=== PATIENT | female | born 1960 | race Caucasian/White ===

== ENCOUNTER 2016-08-04 04:28 | Emergency (ER) | payer OTHER ==
[~2016-08-04] VITALS: Ht 149.9 cm; Wt 90.7 kg
[2016-08-04 04:45] VITALS: BP 105/69
--- NOTE | 2016-08-04 05:10 | Emergency Room Report ---
History of Present Illness General Chief Complaint: Abdominal Pain Source: Patient Present Illness HPI Is a 56-year-old female with no past medical history. She presents chief complaint of profuse diarrhea. His been ongoing for the last 3 days. She's gone multiple times. No vomiting. No fever or chills but no nausea no vomiting. Cramping pain. Diarrhea is watery and profuse. No blood. No recent travel other than from [place] to here. No camping. No recent antibiotics. Allergies: Coded Allergies: ACETAMINOPHEN (Verified Allergy, Unknown, 08/04/16) HYDROCODONE (Verified Allergy, Unknown, 08/04/16) OXYCODONE (Verified Allergy, Unknown, 08/04/16) PREDNISONE (Verified Allergy, Unknown, 08/04/16) Uncoded Allergies: DARVOCET (Allergy, Mild, 08/04/16) Patient History Past Medical History: see triage record, old chart reviewed Past Surgical History: none Pertinent Family History: none Social History: Denies: drug use Last Menstrual Period: N/a Now: No Immunizations: other Reviewed Nursing Documentation: PMH: Agreed, PSxH: Agreed Nursing Documentation-PMH Past Medical History: No History, Except For Review of Systems Eye: Denies: blurred vision, eye pain ENT: Denies: ear pain, nose congestion, throat swelling Respiratory: Denies: cough, shortness of breath Cardiovascular: Denies: chest pain, palpitations Gastrointestinal: Reports: abdominal pain, diarrhea, Denies: nausea, vomiting Musculoskeletal: Denies: back pain, joint pain Skin: Denies: rash Neurological: Denies: headache, numbness Endocrine: Denies: increased thirst, increased urine Hematologic/Lymphatic: Denies: easy bruising All Other Systems: negative except mentioned in HPI Physical Exam Vital Signs Date Time Temp Pulse Resp B/P Pulse Ox O2 Delivery O2 Flow Rate FiO2 08/04/16 04:40 98.2 100 16 107/68 100 Room Air vitals normal Sp02 EP Interpretation: reviewed, normal General Appearance: well appearing, no apparent distress, alert Head: normocephalic, atraumatic Eyes: bilateral eye EOMI, bilateral eye PERRL ENT: hearing grossly normal, normal pharynx Neck: full range of motion, supple, no meningismus Respiratory: chest non-tender, lungs clear, normal breath sounds Cardiovascular #1: regular rate, rhythm, no murmur Gastrointestinal: normal bowel sounds, non tender, no mass, no organomegaly, no bruit, non-distended Musculoskeletal: back normal, gait/station normal, normal range of motion Psychiatric: mood/affect normal Skin: warm/dry Medical Decision Making Diagnostic Impression: Primary Impression: Abdominal pain Qualified Codes: R10.84 - Generalized abdominal pain Additional Impression: Diarrhea of presumed infectious origin ER Course Patient presents with protracted diarrhea and abdominal cramps. No risk factor bacterial infection. Because of the severity and duration, will go ahead and put her on antibiotics. Repeat exam is benign. I see no evidence of obstruction or acute abdomen. Patient hydrated here. We'll discharge home. Last Vital Signs Date Time Temp Pulse Resp B/P Pulse Ox O2 Delivery O2 Flow Rate FiO2 08/04/16 04:40 98.2 100 16 107/68 100 Room Air Status: improved Disposition: HOME, SELF-CARE Condition: Stable Scripts Metronidazole* (FLAGYL*) 500 Mg Tablet 500 MG ORAL BID, #14 TAB 0 Refills Prov: ROSITA VIGIL M.D. 08/04/16 Ciprofloxacin Hcl* (CIPROFLOXACIN HCL*) 500 Mg Tablet 500 MG ORAL Q12H, #14 TAB 0 Refills Prov: ROSITA VIGIL M.D. 08/04/16 Referrals: NON PHYSICIAN (PCP) Additional Instructions: Followup with your DrTerence in 2-3 days. Return if symptom worsen. ROSITA VIGIL M.D. Aug 04, 2016 05:10
[2016-08-04 06:08] LABS: MEAN CORPUSCULAR HEMOGLOBIN 25.6 PG (27.0-31.0); MEAN CORPUSCULAR HGB CONC 32.3 G/DL (32.0-36.0); MEAN CORPUSCULAR VOLUME 79 FL (80-99); MEAN PLATELET VOLUME 6.4 FL (6.5-10.1); PLATELET COUNT 351 K/UL (150-450); RED CELL DISTRIBUTION WIDTH 14.9 % (11.6-14.8); WHITE BLOOD COUNT 17.4 K/UL (4.8-10.8)
[2016-08-04] MEDS ORDERED: CIPROFLOXACIN500 M2 ORAL (06:15)
[2016-08-04] MEDS ORDERED: Ketorolac 30mg Inj IV ONE (06:15)
[2016-08-04] MEDS ORDERED: FLAGYL500 MG ORAL (06:15)
[2016-08-04 06:30] LABS: CALCIUM 9.6 mg/dL (8.6-10.2); GLOMERULAR FILTRATION RATE 57.1 mL/min (>60); POTASSIUM 3.9 mEQ/L (3.4-4.9)
[2016-08-04] MEDS ORDERED: metroNIDAZOLE 500mg tab ORAL ONE ×2 (06:30)
[2016-08-04] MEDS ORDERED: Ciprofloxacin 500mg tab ORAL ONE (06:45)
[2016-08-04 07:12] VITALS: BP 110/70
== END 2016-08-04 07:10 | disposition home or self-care (01) ==
LOC: EMR 04:49
DX: R19.7 Diarrhea, unspecified (principal); R10.84 Generalized abdominal pain; Z88.6 Allergy status to analgesic agent
CPT/HCPCS: 36415; 80053; 83690; 85025; 96361; 96374; 99284; J1885